=== PATIENT | female | born 1975 | race African-American/Black ===

== ENCOUNTER 2018-01-14 22:38 | Emergency (ER) | payer OTHER ==
[~2018-01-14] VITALS: Ht 170.2 cm; Wt 90.7 kg
[~2018-01-14 22:38] MED LIST: ACETAMINOPHEN-1 EAC1 PO; FLEXERIL PO; IBUPROFEN 600600 M1 PO; NAPROSYN500 MG PO; NOHOMEMEDICATIONS; NORCO 5-325 TA1 EACH PO; ROBAXIN 750 MG750 MG PO; TRAMADOL 50 MG50 MG PO; ULTRAM 50MG TAB50 MG PO; VICODIN 5-5001 EACH PO
[2018-01-15] MEDS ORDERED: NORFLEX100 MG PO (00:15)
[2018-01-15] MEDS ORDERED: NAPROSYN500 MG PO (00:15)
[2018-01-15] MEDS ORDERED: PREDNISONE 20 M20 MG PO (00:15)
== END 2018-01-15 01:12 | disposition home or self-care (01) ==
LOC: ER 22:38
DX: M54.5 Low back pain (principal); Z90.710 Acquired absence of both cervix and uterus